=== PATIENT | male | born 1980 | race Two or more races ===

== ENCOUNTER 2024-06-26 10:50 | Emergency (ER) | payer SELFPAY ==
[2024-06-26 10:55] VITALS: BP 193/114; PULSE 110; TEMP 36.6; O2SAT 98; BMI 54.4
--- NOTE | 2024-06-26 11:06 | XR_ITS ---
The [place] [id number] Patient Name: LAURIE GRACE MRN: [id number] date: 1980 Sex: M Assigned Patient Location: ER Current Patient Location: .[facility] Accession/Order Number: [id number] Exam Date: 06/26/2024 11:18 Report Date: 06/26/2024 12:30 At the request of: LAQUITA LOVE Procedure: XR ankle LT min 3V EXAM: XR foot LT min 3V, XR ankle LT min 3V INDICATION: fall. COMPARISON: None. TECHNIQUE: Left foot and ankle, 3 views. FINDINGS: Foot: Superior dislocation of the first MTP joint. No fracture identified. The remaining joint spaces are intact. Medial and dorsal foot and great toe soft tissue swelling. Plantar calcaneal spur. Ankle: Mildly displaced transverse medial malleolar fracture. Widening at the distal tibiofibular syndesmosis. Lateral subluxation of the tibiotalar joint. Soft tissue swelling throughout the ankle. XR/XR ankle LT min 3V IMPRESSION: 1. First MTP joint dislocation. No fracture identified in the foot. 2. Medial malleolus fracture with associated subluxation of the tibiotalar joint and widening of the distal tibiofibular syndesmosis. Recommend x-rays of the left lower leg to assess for a proximal fibular fracture. Electronically authenticated by: JACQUELINE RAMIRES Date: 06/26/2024 12:30
--- NOTE | 2024-06-26 11:06 | XR_ITS ---
The [place] [id number] Patient Name: LAURIE GRACE MRN: [id number] date: 1980 Sex: M Assigned Patient Location: ER Current Patient Location: .[facility] Accession/Order Number: [id number] Exam Date: 06/26/2024 11:18 Report Date: 06/26/2024 12:30 At the request of: LAQUITA LOVE Procedure: XR foot LT min 3V EXAM: XR foot LT min 3V, XR ankle LT min 3V INDICATION: fall. COMPARISON: None. TECHNIQUE: Left foot and ankle, 3 views. FINDINGS: Foot: Superior dislocation of the first MTP joint. No fracture identified. The remaining joint spaces are intact. Medial and dorsal foot and great toe soft tissue swelling. Plantar calcaneal spur. Ankle: Mildly displaced transverse medial malleolar fracture. Widening at the distal tibiofibular syndesmosis. Lateral subluxation of the tibiotalar joint. Soft tissue swelling throughout the ankle. XR/XR foot LT min 3V IMPRESSION: 1. First MTP joint dislocation. No fracture identified in the foot. 2. Medial malleolus fracture with associated subluxation of the tibiotalar joint and widening of the distal tibiofibular syndesmosis. Recommend x-rays of the left lower leg to assess for a proximal fibular fracture. Electronically authenticated by: JACQUELINE RAMIRES Date: 06/26/2024 12:30
--- NOTE | 2024-06-26 11:24 | ED_ITS ---
HPI HPI - Extremity Injury (Lower) General Chief Complaint: Extremity Injury, Lower Stated Complaint: LT LOWER EXTREMITY INJURY Time Seen by Provider: 06/26/24 11:03 Source: patient Mode of arrival: Wheelchair History of Present Illness HPI Narrative: The patient is coming to the ER with a left foot pain that started after he missed some steps yesterday actually fell the last 2 steps while going downward, he mentioned that he thinks that he sprained his ankle he has not been able to put weight on his foot since yesterday Took some ibuprofen today and came to the ER The patient denies any fall or head injury Related Data Previous Rx's ?Medication ?Instructions ?Recorded naproxen 500 mg tablet 500 mg PO Q12H PRN pain #14 tabs 06/26/24 Allergies Allergy/AdvReac Type Severity Reaction Status Date / Time No Known Drug Allergies Allergy Verified 06/26/24 11:00 Opioid HPI Opioid Management Most Recent Pain and Opioid Data: No Data to Display Review of Systems ROS Status of ROS 10 or more systems reviewed and unremark able except as noted in history and below PFSH PFSH Social History Little interest or pleasure in doing things: not at all Feeling down, depressed, or hopeless: not at all Exam Narrative Exam Narrative: Nurses notes and vital signs reviewed and patient is not hypoxic. Left lower extremity: There is significant edema of the ankle and foot mostly the anterior part of the foot on the dorsum there is no open wound there is no redness hotness or any signs of infection, the patient had no vascular injury detected Patient also have deformity that is obvious with the big toe on the left foot with limitation of movement General: Well-appearing and in no apparent distress. Skin: Warm, dry, no pallor noted. No rash. Head: Normocephalic, atraumatic. Neck: Supple, non-tender. Eye: Pupils are equal, round and EOMI. No scleral icterus. Ears, Nose, Mouth, and Throat: TM are clear, no nasal mucosal hypertrophy. Oral mucosa is moist, no posterior oropharynx erythema, uvula is mid-line Cardiovascular: Regular Rate and Rhythm without murmur, gallop or rub. Respiratory: No accessory muscle use or respiratory distress. Lungs are clear to auscultation, no wheezing, rales or rhonchi Chest Wall: no tenderness Back: No midline thoracic or lumbar vertebral tenderness. No CVA tenderness GI: Abdomen is soft, non-distended. Normal bowel sounds. No masses appreciated. No tenderness to palpation. No rebound, guarding, or rigidity noted. Neurological: A&O x4. No cranial nerve dysfunction observed. No truncal ataxia. Moves all extremities. Sensation intact. Psychiatric: Cooperative and interactive. Normal mood and affect. Constitutional Vital Signs, click to edit/add: Last Vital Signs Temp 97.8 F 06/26/24 10:55 Pulse 110 H 06/26/24 10:55 Resp 20 06/26/24 10:55 BP 193/114 H 06/26/24 10:55 Pulse Ox 98 06/26/24 10:55 O2 Del Method Room Air 06/26/24 10:55 Course Vital Signs Vital signs: Vital Signs Temperature 97.8 F 06/26/24 10:55 Pulse Rate 110 H 06/26/24 10:55 Respiratory Rate 20 06/26/24 10:55 Blood Pressure 193/114 H 06/26/24 10:55 Pulse Oximetry 98 06/26/24 10:55 Oxygen Delivery Method Room Air 06/26/24 10:55 Temperature 97.8 F 06/26/24 10:55 Pulse Rate 110 H 06/26/24 10:55 Respiratory Rate 20 06/26/24 10:55 Blood Pressure 193/114 H 06/26/24 10:55 Pulse Oximetry 98 06/26/24 10:55 Oxygen Delivery Method Room Air 06/26/24 10:55 MDM - Extremity Injury (Lower) MDM Narrative Medical decision making narrative: The patient x-ray of the left foot and ankle showed that he have dislocation of the metatarsophalangeal joint After cleaning the area with Betadine at the base of the toe and at the site of the dislocation infiltration of the area with 2 cc of lidocaine 1% with no epinephrine at both sides of the toe at the metatarsophalangeal joint After that just simple pulling out of the toe was able to place the toe back in place X-ray of the patient ankle shows multiple pathology in addition to mildly displaced medial malleolar fracture and the patient case was discussed with Dr. Moncada The patient will be seen by Dr. Moncada tomorrow the day after and he was provided with a short splint in addition to crutches Patient also had dorothy taping of his first and second toe There was a metatarsal avulsion fracture was also read in the x-ray of the foot CT of the lower extremity obtained at the request from Dr. Moncada for follow-up and possible surgical treatment The patient is to follow up with primary care physician in next 2-3 days or to return to the emergency department should any of the signs or symptoms worsen or new symptoms develop. The patient agrees with the following Diagnosis and Treatment plan and the patient will be discharged home. Discharge Plan Discharge Chief Complaint: Extremity Injury, Lower Clinical Impression: Ankle fracture, Dislocation of toe, Avulsion fracture of metatarsal bone Patient Disposition: Home, Self-Care Time of Disposition Decision: 15:15 Condition: Good Prescriptions / Home Meds: New naproxen 500 mg tablet 500 mg PO Q12H PRN (Reason: pain) Qty: 14 0RF Print Language: Chinese Instructions: Ankle Fracture (DC) Referrals: Dr Junito Marcelo [Other] - As soon as possible Physician,Non-Staff, MD [Primary Care Provider] - 1 week Discharge Date/Time: 06/26/24 15:38
--- NOTE | 2024-06-26 12:59 | XR_ITS ---
The [address] [address] Patient Name: LAURIE GRACE MRN: [id number] date: 1980 Sex: M Assigned Patient Location: ER Current Patient Location: ER Accession/Order Number: [id number] Exam Date: 06/26/2024 13:10 Report Date: 06/26/2024 15:02 At the request of: LAQUITA LOVE Procedure: XR tibia fibula LT 2V EXAM: XR tibia fibula LT 2V HISTORY: fracture follow up COMPARISON: None. TECHNIQUE: 2 views of left tibia fibula FINDINGS: Mildly displaced fracture of medial malleolus. There is soft tissue swelling of the ankle. There is a small heel spur. XR/XR tibia fibula LT 2V IMPRESSION: Mildly displaced fracture of medial malleolus. Electronically authenticated by: PAUL MUHAMMAD Date: 06/26/2024 15:02
--- NOTE | 2024-06-26 12:59 | XR_ITS ---
The [address] [address] Patient Name: LAURIE GRACE MRN: [id number] date: 1980 Sex: M Assigned Patient Location: ER Current Patient Location: ER Accession/Order Number: [id number] Exam Date: 06/26/2024 13:10 Report Date: 06/26/2024 15:01 At the request of: LAQUITA LOVE Procedure: XR foot LT min 3V XR foot LT min 3V: HISTORY: dislocation reduction dislocation reduction COMPARISON: 06/26/2024. TECHNIQUE: 3 views of the left foot are submitted. FINDINGS: BONES/JOINT SPACES: There has been interval reduction of dislocated first metatarsophalangeal joint. There is anatomic alignment of osseous structures. There are bony fragments located lateral to the first metatarsophalangeal joint most likely avulsion fractures related to dislocation. There is a fracture of the medial malleolus better evaluated on left ankle x-ray. The joint spaces are well-maintained. SOFT TISSUES: There is diffuse soft tissue swelling. XR/XR foot LT min 3V IMPRESSION: Interval reduction of dislocated first metatarsophalangeal joint. Avulsion fractures are located lateral to the first metatarsophalangeal joint. Medial malleolus fracture better appreciated on left ankle x-ray from the same day. Electronically authenticated by: MANUEL BRUSH Date: 06/26/2024 15:01
[2024-06-26] MEDS: LIDOCAINE HCL 1% PF 50 MG/5 ML VIAL 15 ML INJ (13:52)
--- NOTE | 2024-06-26 14:07 | CT_ITS ---
The [address] [address] Patient Name: LAURIE GRACE MRN: [id number] date: 1980 Sex: M Assigned Patient Location: ER Current Patient Location: ER Accession/Order Number: [id number] Exam Date: 06/26/2024 14:25 Report Date: 06/26/2024 15:09 At the request of: LAQUITA LOVE Procedure: CT lower leg LT wo con Examination:CT lower leg LT wo con INDICATION:please scan area below the knee COMPARISON:Left tibia/fibula x-ray from the same day. TECHNIQUE:Multiple thin section transaxial slices were acquired through the left lower extremity. Images were obtained from the level of the distal left femur through the left ankle. FINDINGS:There is an acute fracture of the medial malleolus with minimal displacement. No additional acute fractures are present elsewhere in the left tibia. No acute fractures are present in the distal femur, visualized patella, fibula or visualized ankle otherwise. There is a tiny smoothly marginated bony fragment in the distal fibula which may represent sequela to old trauma or an unfused apophysis. There is diffuse subcutaneous soft tissue edema in the mid to lower left calf. No organized fluid collections are present. There is no gas in the soft tissues. CT/CT lower leg LT wo con IMPRESSION: Acute fracture of the medial malleolus. No definitive acute fractures elsewhere based on this examination. Diffuse subcutaneous soft tissue edema in the mid and lower left calf. Electronically authenticated by: MANUEL BRUSH Date: 06/26/2024 15:09
[2024-06-26] MEDS: KETOROLAC TROMETHAMINE 60 MG/2 ML VIAL IM (14:09)
[2024-06-26 14:49] VITALS: BP 145/99
== END 2024-06-26 15:38 | disposition home or self-care (01) ==
PROVIDERS: Emergency Provider Emergency Medicine
DX: S93.122A Dislocation of metatarsophalangeal joint of left great toe, initial encounter (principal); S82.52XA Displaced fracture of medial malleolus of left tibia, initial encounter for closed fracture; S92.312A Displaced fracture of first metatarsal bone, left foot, initial encounter for closed fracture; W10.9XXA Fall (on) (from) unspecified stairs and steps, initial encounter
CPT/HCPCS: 73590; 73610; 73630; 73700; 96372; 99285; J1885

== ENCOUNTER 2024-07-05 10:17 | Outpatient (OUT) | payer SELFPAY ==
--- NOTE | 2024-07-05 | XR_ITS ---
The [address] [address] Patient Name: LAURIE GRACE MRN: [id number] date: 1980 Sex: M Assigned Patient Location: [facility] Current Patient Location: Accession/Order Number: [id number] Exam Date: 07/05/2024 10:19 Report Date: 07/06/2024 12:53 At the request of: MANI YANES Procedure: XR ankle BELTRAN min 3V EXAMINATION: XR ankle BELTRAN min 3V, XR foot LT min 3V HISTORY: BILATERAL ANKLE PAIN COMPARISON: 06/26/2024 FINDINGS: RIGHT FINDINGS: BONES: No acute fracture or dislocation. Moderate plantar enthesopathic spurring of the calcaneus. Contour deformity of the distal fibula likely remote healed fracture. Calcification the tibiofibular syndesmosis SOFT TISSUES: Negative. No visible soft tissue swelling. OTHER: Negative. LEFT FINDINGS: BONES: Acute transverse fracture of the medial malleolus with distraction measuring up to 7 mm. No dislocation. Grossly stable bone fragment along the lateral margin of the first metatarsal head SOFT TISSUES: Forefoot soft tissue swelling OTHER: Negative. XR/XR ankle BELTRAN min 3V IMPRESSION: RIGHT CONCLUSION: No acute abnormality LEFT CONCLUSION: Acute transverse fracture distal medial malleolus. Suspected grossly stable fracture lateral head of the first metatarsal Electronically authenticated by: JACKELINE LEIJA Date: 07/06/2024 12:53
--- NOTE | 2024-07-05 | XR_ITS ---
The [address] [address] Patient Name: LAURIE GRACE MRN: [id number] date: 1980 Sex: M Assigned Patient Location: [employer] Current Patient Location: Accession/Order Number: [id number] Exam Date: 07/05/2024 10:19 Report Date: 07/06/2024 12:53 At the request of: MANI YANES Procedure: XR foot LT min 3V EXAMINATION: XR ankle BELTRAN min 3V, XR foot LT min 3V HISTORY: BILATERAL ANKLE PAIN COMPARISON: 06/26/2024 FINDINGS: RIGHT FINDINGS: BONES: No acute fracture or dislocation. Moderate plantar enthesopathic spurring of the calcaneus. Contour deformity of the distal fibula likely remote healed fracture. Calcification the tibiofibular syndesmosis SOFT TISSUES: Negative. No visible soft tissue swelling. OTHER: Negative. LEFT FINDINGS: BONES: Acute transverse fracture of the medial malleolus with distraction measuring up to 7 mm. No dislocation. Grossly stable bone fragment along the lateral margin of the first metatarsal head SOFT TISSUES: Forefoot soft tissue swelling OTHER: Negative. XR/XR foot LT min 3V IMPRESSION: RIGHT CONCLUSION: No acute abnormality LEFT CONCLUSION: Acute transverse fracture distal medial malleolus. Suspected grossly stable fracture lateral head of the first metatarsal Electronically authenticated by: JACKELINE LEIJA Date: 07/06/2024 12:53
== END 2024-07-05 10:18 | disposition home or self-care (01) ==
LOC: RAD 10:17
PROVIDERS: Visit Provider Podiatrist Foot & Ankle Surgery
DX: M25.572 Pain in left ankle and joints of left foot (principal); M25.571 Pain in right ankle and joints of right foot; M77.31 Calcaneal spur, right foot; S82.55XA Nondisplaced fracture of medial malleolus of left tibia, initial encounter for closed fracture
CPT/HCPCS: 73610; 73630

== ENCOUNTER 2024-07-19 10:26 | Outpatient (OUT) | payer SELFPAY ==
--- NOTE | 2024-07-19 10:28 | XR_ITS ---
The [address] [address] Patient Name: LAURIE GRACE MRN: [id number] date: 1980 Sex: M Assigned Patient Location: [facility] Current Patient Location: Accession/Order Number: [id number] Exam Date: 07/19/2024 10:38 Report Date: 07/20/2024 07:52 At the request of: MANI YANES Procedure: XR foot LT min 3V PROCEDURE: XR foot LT min 3V, XR ankle LT min 3V COMPARISON: 07/05/2024 HISTORY: Left foot pain FINDINGS: BONES:Increased lucency across age otherwise stable transverse medial malleolus fracture consistent with lytic healing. Moderate enthesopathic spurring of the calcaneus. No additional fracture is appreciated on this limited exam SOFT TISSUES:Negative. No visible soft tissue swelling. EFFUSION:None visible. OTHER: Negative. XR/XR foot LT min 3V IMPRESSION: Stable healing medial malleolus fracture Electronically authenticated by: JACKELINE LEIJA Date: 07/20/2024 07:52
--- NOTE | 2024-07-19 10:28 | XR_ITS ---
The [address] [address] Patient Name: LAURIE GRACE MRN: [id number] date: 1980 Sex: M Assigned Patient Location: [facility] Current Patient Location: Accession/Order Number: [id number] Exam Date: 07/19/2024 10:38 Report Date: 07/20/2024 07:52 At the request of: MANI YANES Procedure: XR ankle LT min 3V PROCEDURE: XR foot LT min 3V, XR ankle LT min 3V COMPARISON: 07/05/2024 HISTORY: Left foot pain FINDINGS: BONES:Increased lucency across age otherwise stable transverse medial malleolus fracture consistent with lytic healing. Moderate enthesopathic spurring of the calcaneus. No additional fracture is appreciated on this limited exam SOFT TISSUES:Negative. No visible soft tissue swelling. EFFUSION:None visible. OTHER: Negative. XR/XR ankle LT min 3V IMPRESSION: Stable healing medial malleolus fracture Electronically authenticated by: JACKELINE LEIJA Date: 07/20/2024 07:52
--- OUTSIDE RECORDS SUMMARY | 2024-07-19 10:35 | XMS_ITS | CCD ---
Author Organization [facility] Results Test Name Value Interpretation Reference Range Facil pancho COVID-19 Antigenon 1 COVID-19 Antigen Healthcare Worker?: N Roro Reference Roro Reference Negative SARS-CoV+SARS-CoV-2 (COVID-19) Ag [Presence] in Respiratory specimen by Rapid immunoassay Negative for SARS Antigen by YVONNE COVID19 Blank Space Roro Disclaimer Negative results, from patients with symptom Roro Disclaimer onset beyond five days, should be treated as Roro Disclaimer presumptive and confirmation with a molecular Roro Disclaimer assay, if necessary, for patient management, Roro Disclaimer may be performed. Negative results do not rule Roro Disclaimer out COVID-19 and should not be used as the sole Roro Disclaimer basis for treatment or patient management Roro Disclaimer decisions, including infection control decisions. Roro Disclaimer Negative results should be considered in the Roro Disclaimer context of a patient's recent exposures, history Roro Disclaimer and the presence of clinical signs and symptoms Roro Disclaimer consistent with COVID-19. COVID19 Blank Space Roro Disclaimer The Roro SARS Antigen YVONNE does not differentiate Roro Disclaimer between SARS-CoV and SARS-CoV-2. COVID19 Blank Space Roro Disclaimer This test was developed and its performance Roro Disclaimer characteristic determined by [employer] and Roro Disclaimer validated at [facility]. This Roro Disclaimer test has not been FDA cleared or approved. This Roro Disclaimer test has been authorized by FDA under an Emergency Use Roro Disclaimer Authorization (EUA). This test has been validated Roro Disclaimer in accordance with the FDA's Guidance Document (Policy Roro Disclaimer for Diagnostics Testing in Laboratories Certified to Roro Disclaimer Perform High Complexity Testing under CLIA prior to Roro Disclaimer Emergency Use Authorization for Coronavirus Roro Disclaimer iseas during the Public Health Emergency) Roro Disclaimer issued on November 17, 2019. This test is only authorized Roro Disclaimer for the duration of time the declaration that Roro Disclaimer circumstances exist justifying the authorization of Roro Disclaimer the emergency use of in vitro diagnostic tests for Roro Disclaimer detection of SARS-CoV-2 virus and/or diagnosis of Roro Disclaimer COVID-19 infection under section 564(b)(1) of the Roro Disclaimer Act, 21 U.S.C. 360bbb-3(b)(1), unless the Roro Disclaimer authorization is terminated or revoked sooner. PERFORMED BY: [place] [address] PATHOLOGIST COUNTER CUTTER JASON KUMARI M.D. Normal [facility] Comment on above: Performed By: #### S LEESA, COVID-19 RORO #### [address] Roro Ag Negativeon 08-12-20 21 Roro Ag Negative Negative Normal Negative [facility] Comment on above: Result Comment: This is a duplicate Roro SARS Antigen (YVONNE) result to be used for statistical tracking purpose only. PERFORMED BY: [address] [place] [address] PATHOLOGIST COUNTER CUTTER JASON KUMARI M.D. Performed By: #### S LEESA COVID-19 RORO #### [facility] [address] [id number] [facility] COVID-19 Antigenon 1 COVID-19 Antigen Healthcare Worker?: N Roro Reference Roro Reference Negative SARS-CoV+SARS-CoV-2 (COVID-19) Ag [Presence] in Respiratory specimen by Rapid immunoassay Negative for SARS Antigen by YVONNE COVID19 Blank Space Roro Disclaimer Negative results, from patients with symptom Roro Disclaimer onset beyond five days, should be treated as Roro Disclaimer presumptive and confirmation with a molecular Roro Disclaimer assay, if necessary, for patient management, Roro Disclaimer may be performed. Negative results do not rule Roro Disclaimer out COVID-19 and should not be used as the sole Roro Disclaimer basis for treatment or patient management Roro Disclaimer decisions, including infection control decisions. Roro Disclaimer Negative results should be considered in the Roro Disclaimer context of a patient's recent exposures, history Roro Disclaimer and the presence of clinical signs and symptoms Roro Disclaimer consistent with COVID-19. COVID19 Blank Space Roro Disclaimer The Roro SARS Antigen YVONNE does not differentiate Roro Disclaimer between SARS-CoV and SARS-CoV-2. COVID19 Blank Space Roro Disclaimer This test was developed and its performance Roro Disclaimer characteristic determined by [employer] and Roro Disclaimer validated at [facility]. This Roro Disclaimer test has not been FDA cleared or approved. This Roro Disclaimer test has been authorized by FDA under an Emergency Use Roro Disclaimer Authorization (EUA). This test has been validated Roro Disclaimer in accordance with the FDA's Guidance Document (Policy Roro Disclaimer for Diagnostics Testing in Laboratories Certified to Roro Disclaimer Perform High Complexity Testing under CLIA prior to Roro Disclaimer Emergency Use Authorization for Coronavirus Roro Disclaimer is during the Public Health Emergency) Roro Disclaimer issued on November 17, 2019. This test is only authorized Roro Disclaimer for the duration of time the declaration that Roro Disclaimer circumstances exist justifying the authorization of Roro Disclaimer the emergency use of in vitro diagnostic tests for Roro Disclaimer detection of SARS-CoV-2 virus and/or diagnosis of Roro Disclaimer COVID-19 infection under section 564(b)(1) of the Roro Disclaimer Act, 21 U.S.C. 360bbb-3(b)(1), unless the Roro Disclaimer authorization is terminated or revoked sooner. PERFORMED BY: [place] [address] PATHOLOGIST COUNTER CUTTER JASON KUMARI M.D. [facility] Comment on above: Performed By: #### C OVID-19 RORO, SOFIANEG #### [address] Roro Ag Negativeon 05-21-20 21 Roro Ag Negative Negative Normal Negative [facility] Comment on above: Result Comment: This is a duplicate Roro SARS Antigen (YVONNE) result to be used for statistical tracking purpose only. PERFORMED BY: [place] [address] PATHOLOGIST COUNTER CUTTER JASON KUMARI M.D. Performed By: #### C OVID-19 RORO, SOFIANEG #### [address] [place] [address] [facility] Summary Purpose Family History No Family History Records Found Advance Directives No Advanced Directives Records Found Additional Source Comments (unrecognized sect ion and content) No Status Records Found INFORMATION SOURCE (unrecogn ized section and content) DATE CREATED AUTHOR 10/06/[address] [facility] FOR RECORDS PERTAINING TO PATIENTS WHO ARE OR HAVE BEEN ENROLLED IN A CHEMICAL DEPENDENCY/SUBSTANCEABUSE PROGRAM, SOME INFORMATION MAY BE OMITTED. This clinical summary was aggregated from multiple sources. Caution should be exercised in using it in the provision of clinical care. This summary normalizes information from multiple sources, and as a consequence, information in this document may materially change the coding, format and clinical context of patient data. In addition, data may be omitted in some cases. CLINICAL DECISIONS SHOULD BE BASED ON THE PRIMARY CLINICAL RECORDS. [employer] provides no warranty or guarantee of the accuracy or completeness of information in this document.
== END 2024-07-19 10:27 | disposition home or self-care (01) ==
LOC: RAD 10:26
PROVIDERS: Visit Provider Podiatrist Foot & Ankle Surgery
DX: M25.572 Pain in left ankle and joints of left foot (principal); S82.55XD Nondisplaced fracture of medial malleolus of left tibia, subsequent encounter for closed fracture with routine healing
CPT/HCPCS: 73610; 73630

== ENCOUNTER 2024-08-02 14:17 | Outpatient (OUT) | payer SELFPAY ==
--- NOTE | 2024-08-02 14:22 | XR_ITS ---
The [address] [address] Patient Name: LAURIE GRACE MRN: [id number] date: 1980 Sex: M Assigned Patient Location: [facility] Current Patient Location: Accession/Order Number: [id number] Exam Date: 08/02/2024 14:30 Report Date: 08/03/2024 12:22 At the request of: MANI YANES Procedure: XR foot LT min 3V PROCEDURE: XR foot LT min 3V, XR ankle LT min 3V HISTORY: Left Foot Pain 1. COMPARISON: XR left foot and ankle 07/19/2024 FINDINGS: BONES:Increasing density of nondisplaced medial malleolus fracture line. Normal ankle joint spacing. Degenerative enthesopathic spurring of the calcaneus. SOFT TISSUES:Soft tissue swelling surrounding the ankle, medial greater than lateral. EFFUSION:None visible. OTHER: Negative. XR/XR foot LT min 3V IMPRESSION: 1. Stable alignment and ongoing bone healing of medial malleolus fracture. 2. Unremarkable foot. Electronically authenticated by: PERLA MAE Date: 08/03/2024 12:22
--- NOTE | 2024-08-02 14:22 | XR_ITS ---
The [address] [address] Patient Name: LAURIE GRACE MRN: [id number] date: 1980 Sex: M Assigned Patient Location: [facility] Current Patient Location: Accession/Order Number: [id number] Exam Date: 08/02/2024 14:30 Report Date: 08/03/2024 12:22 At the request of: MANI YANES Procedure: XR ankle LT min 3V PROCEDURE: XR foot LT min 3V, XR ankle LT min 3V HISTORY: Left Foot Pain 1. COMPARISON: XR left foot and ankle 07/19/2024 FINDINGS: BONES:Increasing density of nondisplaced medial malleolus fracture line. Normal ankle joint spacing. Degenerative enthesopathic spurring of the calcaneus. SOFT TISSUES:Soft tissue swelling surrounding the ankle, medial greater than lateral. EFFUSION:None visible. OTHER: Negative. XR/XR ankle LT min 3V IMPRESSION: 1. Stable alignment and ongoing bone healing of medial malleolus fracture. 2. Unremarkable foot. Electronically authenticated by: PERLA AME Date: 08/03/2024 12:22
--- OUTSIDE RECORDS SUMMARY | 2024-08-02 14:40 | XMS_ITS | CCD ---
Author Organization [facility] Results Test Name Value Interpretation Reference Range [...] its performance Roro Disclaimer characteristic determined by [employer] and Roro Disclaimer validated at [facility]. This Roro Disclaimer test has not been [...] is terminated or revoked sooner. PERFORMED BY: [place] [address] PATHOLOGIST [employer]LL[employer] SKATER JASON KUMARI M.D. Normal [facility] Comment on above: Performed By: #### S LEESA, COVID-19 RORO #### [address] Roro Ag Negativeon 08-12-20 21 Roro Ag Negative Negative Normal Negative [facility] Comment on above: Result Comment: This is a duplicate Roro SARS Antigen (YVONNE) result to be used for statistical tracking purpose only. PERFORMED BY: [address] [place] [address] PATHOLOGIST ROLLER SKATER JASON KUMARI M.D. Performed By: #### S LEESA COVID-19 RORO #### [facility] [address] [id number] [facility] COVID-19 Antigenon 1 COVID-19 [...] its performance Roro Disclaimer characteristic determined by [employer] and Roro Disclaimer validated at [facility]. This Roro Disclaimer test has not been [...] is terminated or revoked sooner. PERFORMED BY: [place] [address] PATHOLOGIST ROLLER SKATER JASON KUMARI M.D. [facility] Comment on above: Performed By: #### C OVID-19 RORO, SOFIANEG #### [address] Roro Ag Negativeon 05-21-20 21 Roro Ag Negative Negative Normal Negative [facility] Comment on above: Result Comment: This is a duplicate Roro SARS Antigen (YVONNE) result to be used for statistical tracking purpose only. PERFORMED BY: [place] [address] PATHOLOGIST ROLLER SKATER JASON KUMARI M.D. Performed By: #### C OVID-19 RORO, SOFIANEG #### [address] [place] [address] [facility] Summary Purpose Family History No Family History Records Found Advance Directives No Advanced Directives Records Found Additional Source Comments (unrecognized sect ion and content) No Status Records Found INFORMATION SOURCE (unrecogn ized section and content) DATE CREATED AUTHOR 10/06/2021 [facility] FOR RECORDS PERTAINING TO PATIENTS WHO [...] BE BASED ON THE PRIMARY CLINICAL RECORDS. [employer] provides no warranty or guarantee of the accuracy or completeness of information in this document.
== END 2024-08-02 14:18 | disposition home or self-care (01) ==
LOC: RAD 14:17
PROVIDERS: Visit Provider Podiatrist Foot & Ankle Surgery
DX: M25.572 Pain in left ankle and joints of left foot (principal); S82.55XD Nondisplaced fracture of medial malleolus of left tibia, subsequent encounter for closed fracture with routine healing
CPT/HCPCS: 73610; 73630

== ENCOUNTER 2024-08-23 14:18 | Outpatient (OUT) | payer BC, SELFPAY ==
--- NOTE | 2024-08-23 14:21 | XR_ITS ---
The [address] [address] Patient Name: LAURIE GRACE MRN: [id number] date: 1980 Sex: M Assigned Patient Location: [facility] Current Patient Location: [facility] Accession/Order Number: [id number] Exam Date: 08/23/2024 14:28 Report Date: 08/23/2024 14:50 At the request of: MANI YANES Procedure: XR ankle LT min 3V EXAM: XR ankle LT min 3V HISTORY: ankle pain COMPARISON: 08/02/2024. TECHNIQUE: 3 views of the left ankle were obtained. FINDINGS: There is a fracture involving the medial malleolus. The distal fracture fragment is slightly displaced inferiorly and anteriorly, and rotated, with nonunion. There is no other evidence of an acute fracture or dislocation. No osteochondral injury is identified. Diffuse soft tissue swelling about the extremity is noted. XR/XR ankle LT min 3V IMPRESSION: Fracture of the medial malleolus. There is no evidence of osseous healing, and the distal fracture fragment is displaced inferiorly and anteriorly, and rotated. Diffuse soft tissue swelling is present. Electronically authenticated by: MANI VELÁSQUEZ Date: 08/23/2024 14:50
--- NOTE | 2024-08-23 14:21 | XR_ITS ---
The [place] [id number] Patient Name: LAURIE GRACE MRN: [id number] date: 1980 Sex: M Assigned Patient Location: [facility] Current Patient Location: [facility] Accession/Order Number: [id number] Exam Date: 08/23/2024 14:28 Report Date: 08/23/2024 14:54 At the request of: MANI YANES Procedure: XR foot LT min 3V EXAM: XR foot LT min 3V HISTORY: foot pain COMPARISON: 08/02/2024 TECHNIQUE: A views of the left foot were obtained. FINDINGS: There is a fracture of the medial malleolus. Please see the report for the x-ray of the ankle performed on the same day for details. There is no other evidence of an acute fracture or dislocation. There is mild narrowing of the first metatarsophalangeal joint, with erosion along the lateral aspect of the head of the first metatarsal bone and bony fragmentation of the lateral sesamoid bone. These findings are unchanged. The joint spaces are otherwise intact. Osteophytes and calcifications arise from the insertion site of the Achilles tendon and the plantar fascia origin. Diffuse soft tissue swelling in the ankle and foot is noted. XR/XR foot LT min 3V IMPRESSION: Fracture of the medial malleolus. There is no other evidence of an acute fracture or dislocation in the foot. Osteophytes arise from the posterior calcaneus. Diffuse soft tissue swelling is present. The overall appearance of the foot is unchanged. Electronically authenticated by: MANI VELÁSQUEZ Date: 08/23/2024 14:54
== END 2024-08-23 14:19 | disposition home or self-care (01) ==
LOC: RAD 14:18
PROVIDERS: Visit Provider Podiatrist Foot & Ankle Surgery
DX: M25.572 Pain in left ankle and joints of left foot (principal); S82.52XG Displaced fracture of medial malleolus of left tibia, subsequent encounter for closed fracture with delayed healing
CPT/HCPCS: 73610; 73630

== ENCOUNTER 2024-09-21 09:55 | Outpatient (OUT) | payer BC, SELFPAY ==
--- NOTE | 2024-09-21 09:58 | XR_ITS ---
The [address] [address] Patient Name: LAURIE GRACE MRN: [id number] date: 1980 Sex: M Assigned Patient Location: [facility] Current Patient Location: Accession/Order Number: [id number] Exam Date: 09/21/2024 10:05 Report Date: 09/23/2024 11:49 At the request of: MANI YANES Procedure: XR ankle LT min 3V PROCEDURE: XR ankle LT min 3V COMPARISON: 08/23/2024 HISTORY: Left ankle pain FINDINGS: BONES:Stable transverse fracture through the medial malleolus with distraction measuring up to 5 mm. No interval bony bridging or significant bone formation. No new fracture or dislocation. Moderate enthesopathic spurring of the calcaneus at the Achilles and plantar insertions SOFT TISSUES:Moderate diffuse soft tissue swelling EFFUSION:None visible. OTHER: Negative. XR/XR ankle LT min 3V IMPRESSION: Stable medial malleolar fracture with no interval bony bridging. Electronically authenticated by: JACKELINE LEIJA Date: 09/23/2024 11:49
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
== END 2024-09-21 09:56 | disposition home or self-care (01) ==
LOC: RAD 09:55
PROVIDERS: Visit Provider Podiatrist Foot & Ankle Surgery
DX: M25.572 Pain in left ankle and joints of left foot (principal); S82.55XD Nondisplaced fracture of medial malleolus of left tibia, subsequent encounter for closed fracture with routine healing
CPT/HCPCS: 73610